=== PATIENT | female | born 1995 | race Caucasian/White ===

== ENCOUNTER 2017-06-08 08:05 | Emergency (ER) | payer MEDICAID ==
[~2017-06-08] VITALS: Ht 170.2 cm; Wt 72.6 kg
[~2017-06-08 08:05] MED LIST: BG MC; GLU5 PO; GLU500 PO; HUMULIN R100 U/1 M1 SC; LAC PO; LEVAQUIN250 MG PO; LEVEMIR100 U/M1 SC; LEXAPRO10 MG PO; METFORMIN HCL1000 MG PO; METFORMIN HCL500 MG PO
[2017-06-08 10:02] LABS: CALCIUM 8.7 mg/dL (8.5-10.1); CARBON DIOXIDE 25.6 mmol/L (21-32); CHLORIDE SERUM 102 mmol/L (98-107); CREATININE SERUM 0.8 mg/dL (0.6-1.0); GFR1 > 60 mL/min; GLUCOSE SERUM 284 mg/dL (74-106); POTASSIUM SERUM 4.8 mmol/L (3.5-5.1); SODIUM SERUM 136 mmol/L (136-145)
[2017-06-08 10:08] LABS: ALBUMIN 3.6 g/dL (3.4-5.0); ALKALINE PHOSPHATASE 56 U/L (46-116); ALT/SGPT 42 U/L (14-59); AST/SGOT 18 U/L (15-37); BILIRUBIN TOTAL 0.4 mg/dL (0.20-1.00); CHOLESTEROL 160 mg/dL (<200); HDL CHOLESTEROL 39 mg/dL (40-60); TOTAL PROTEIN, SERUM 7.6 g/dL (6.4-8.2)
[2017-06-08 10:16] LABS: BASOPHIL % 0.6 % (0-2); PLATELET COUNT 197 x10^3mcL (130-400); RED CELL DISTRIBUTION WIDTH 13.4 % (11.5-14.5)
[2017-06-08 11:25] VITALS: BP 132/89
== END 2017-06-08 11:25 | disposition home or self-care (01) ==
LOC: ED 08:05
PROVIDERS: Emergency Medicine
DX: S16.1XXA Strain of muscle, fascia and tendon at neck level, initial encounter (principal); R55 Syncope and collapse; E11.9 Type 2 diabetes mellitus without complications; I10 Essential (primary) hypertension; Z88.0 Allergy status to penicillin; Z79.84 Long term (current) use of oral hypoglycemic drugs; X58.XXXA Exposure to other specified factors, initial encounter; Y93.E1 Activity, personal bathing and showering; Y99.8 Other external cause status; Y92.002 Bathroom of unspecified non-institutional (private) residence as the place of occurrence of the external cause
CPT/HCPCS: 83880; J1885; J7030

== ENCOUNTER 2017-11-30 22:53 | Emergency (ER) | payer MEDICAID ==
[~2017-11-30] VITALS: Ht 170.2 cm; Wt 96.6 kg
[2017-11-30 23:39] VITALS: Ht 170.2 cm; Wt 96.6 kg
[2017-12-01 05:18] VITALS: BP 144/77
== END 2017-12-01 05:18 | disposition home or self-care (01) ==
LOC: ED 22:53
DX: O23.42 Unspecified infection of urinary tract in pregnancy, second trimester (principal); O10.912 Unspecified pre-existing hypertension complicating pregnancy, second trimester; O24.312 Unspecified pre-existing diabetes mellitus in pregnancy, second trimester; Z3A.17 17 weeks gestation of pregnancy; Z88.0 Allergy status to penicillin
CPT/HCPCS: Q0092

== ENCOUNTER 2018-12-06 19:45 | Emergency (ER) | payer OTHER ==
[~2018-12-06] VITALS: Ht 172.7 cm; Wt 89.8 kg
[2018-12-06 22:47] VITALS: BP 106/77
== END 2018-12-06 22:47 | disposition home or self-care (01) ==
LOC: ED 19:45
DX: O26.891 Other specified pregnancy related conditions, first trimester (principal); F41.9 Anxiety disorder, unspecified; I10 Essential (primary) hypertension; E11.9 Type 2 diabetes mellitus without complications; Z88.0 Allergy status to penicillin; Z3A.00 Weeks of gestation of pregnancy not specified
CPT/HCPCS: J1200

== ENCOUNTER 2019-07-10 20:32 | Emergency (ER) | payer SELFPAY ==
[~2019-07-10] VITALS: Ht 172.7 cm; Wt 83.5 kg
[2019-07-10 20:36] VITALS: Ht 172.7 cm; Wt 83.5 kg
[2019-07-10 22:51] VITALS: BP 119/76
== END 2019-07-10 22:51 | disposition home or self-care (01) ==
LOC: ED 20:32
DX: R51 Headache (principal); I10 Essential (primary) hypertension; E11.9 Type 2 diabetes mellitus without complications; Z88.0 Allergy status to penicillin
CPT/HCPCS: J1885; Q0162

== ENCOUNTER 2019-12-20 21:09 | Emergency (ER) | payer SELFPAY ==
[~2019-12-20] VITALS: Ht 172.7 cm; Wt 83.5 kg
[2019-12-20 21:21] VITALS: Ht 172.7 cm; Wt 83.5 kg
[2019-12-20 22:59] VITALS: BP 126/64
== END 2019-12-20 22:59 | disposition home or self-care (01) ==
LOC: ED 21:09
DX: S29.012A Strain of muscle and tendon of back wall of thorax, initial encounter (principal); S60.222A Contusion of left hand, initial encounter; I10 Essential (primary) hypertension; E11.9 Type 2 diabetes mellitus without complications; Z88.0 Allergy status to penicillin; V49.9XXA Car occupant (driver) (passenger) injured in unspecified traffic accident, initial encounter; Y93.I9 Activity, other involving external motion; Y92.413 State road as the place of occurrence of the external cause; Y99.8 Other external cause status
CPT/HCPCS: J1885